=== PATIENT | male | born 1945 ===

== ENCOUNTER 2020-01-11 17:28 | Inpatient (IN) ==
[2020-01-11] MEDS ORDERED: DilTIAZem 50 MG/50 ML IV.SOLN IVC SCH (18:15)
[2020-01-11] MEDS ORDERED: 0.9 % Sodium Chloride 1,000 ML IVC ONE (18:15)
[2020-01-11 18:34] LABS: Calcium 8.9 mg/dL (8.6-10.3); Potassium 3.3 mEq/L (3.5-5.1); Troponin I 0.03 ng/mL (< 0.04)
[2020-01-11 18:46] LABS: Basophils % 0.3 %; Eosinophils % 0.2 %; Hematocrit 45.9 % (37.5-50.1); Hemoglobin 15.7 g/dL (12.9-16.9); Immature Granulocytes % 0.3 % (0-4); Lymphocytes # 0.9 K/mcL (0.6-4.6); Lymphocytes % 15.3 %; Mean Corpuscular HGB Conc 34.2 g/dL (31.6-35.5); Mean Corpuscular Volume 93.7 fL (83.0-100.0); Mean Platelet Volume 10.3 fL (9.4-12.4); Monocytes # 0.6 K/mcL (0.0-1.3); Monocytes % 9.7 %; Neutrophils # 4.4 K/mcL (1.6-8.9); Platelet Count 138 K/mcL (140-400); Red Cell Distribution Width 15.2 % (11.5-14.5); Segmented Neutrophils % 74.2 %; White Blood Count 5.9 K/mcL (4.3-11.1)
[2020-01-11 19:03] LABS: Platelet Estimate Normal (Normal)
[2020-01-11 19:35] LABS: Adenovirus Not Detected (Not Detect); Coronavirus 229E Not Detected (Not Detect); Coronavirus HKU1 Not Detected (Not Detect); Coronavirus NL63 Not Detected (Not Detect); Coronavirus OC43 Not Detected (Not Detect)
[2020-01-11 19:37] LABS: Bordetella Pertussis Not Detected (Not Detect); Chlamydophila pneumoniae Not Detected (Not Detect); Human Metapneumovirus Not Detected (Not Detect); Human Rhinovirus/Enterovirus Not Detected (Not Detect); Influenza A Subtype 2009 H1 Not Detected (Not Detect); Influenza B Not Detected (Not Detect); Mycoplasma pneumoniae Not Detected (Not Detect); Parainfluenza Virus 1 Not Detected (Not Detect); Parainfluenza Virus 2 Not Detected (Not Detect); Parainfluenza Virus 3 Not Detected (Not Detect); Parainfluenza Virus 4 Not Detected (Not Detect); Respiratory Syncytial Virus Not Detected (Not Detect); SARS-CoV-2 DETECTED (Not Detect)
[2020-01-11 19:38] LABS: Prothrombin Time 23.1 Seconds (9.4-12.1)
[2020-01-11] MEDS ORDERED: Furosemide 40 MG/4 ML VIAL IVP ONE (20:55)
[2020-01-11] MEDS ORDERED: Potassium Chloride Elixir 20 MEQ/15 ML UDC PO ONE (20:58)
[2020-01-11] MEDS ORDERED: Naloxone 0.4 MG/ML INJ IVP PRN (21:54)
[2020-01-11] MEDS ORDERED: *HR* Warfarin 5 MG TABLET PO ONE (22:18)
[2020-01-12 06:00] LABS: Immature Granulocytes % 0.2 % (0-4); Mean Corpuscular Volume 92.9 fL (83.0-100.0); Red Cell Distribution Width 15.3 % (11.5-14.5)
[2020-01-12 06:02] LABS: Basophils % 0.5 %; Eosinophils % 0.4 %; Hematocrit 44.6 % (37.5-50.1); Hemoglobin 14.8 g/dL (12.9-16.9); Immature Platelets 5.5 % (1.1-6.1); Lymphocytes # 1.4 K/mcL (0.6-4.6); Lymphocytes % 25.5 %; Mean Corpuscular HGB Conc 33.2 g/dL (31.6-35.5); Mean Corpuscular Hemoglobin 30.8 pg (28.0-33.3); Mean Platelet Volume 10.2 fL (9.4-12.4); Monocytes # 0.5 K/mcL (0.0-1.3); Monocytes % 9.8 %; Neutrophils # 3.5 K/mcL (1.6-8.9); Platelet Count 135 K/mcL (140-400); Segmented Neutrophils % 63.6 %; White Blood Count 5.5 K/mcL (4.3-11.1)
[2020-01-12 06:21] LABS: Albumin 3.8 g/dL (3.5-5.7); Albumin/Globulin Ratio 1.1 (1.1-2.2); Bilirubin,Total 1.1 mg/dL (0.3-1.0); Globulin 3.6 g/dL (2.4-3.5); Magnesium 1.8 mg/dL (1.6-2.6); Phosphorous 2.5 mg/dL (2.7-4.5); Potassium 3.2 mEq/L (3.5-5.1); Total Protein 7.4 g/dL (6.4-8.9); Troponin I 0.03 ng/mL (< 0.04)
[2020-01-12] MEDS: Furosemide 40 MG/4 ML VIAL IVP SCH (07:31)
[2020-01-12 09:33] LABS: C-Reactive Protein 30 mg/L (Less than 10); Lactate Dehydrogenase 280 Units/L (140-271)
[2020-01-12] MEDS: Ipratropium 1 PUFF INHALER IH SCH ×3 (10:50→21:46)
[2020-01-12] MEDS ORDERED: Metoprolol XL (24 HR) Succ 50 MG TAB.ER.24H PO SCH (11:00)
[2020-01-12] MEDS: Metoprolol XL (24 HR) Succ 50 MG TAB.ER.24H PO SCH (11:26)
[2020-01-12 13:17] LABS: ABG Base Excess 3 mEq/L (-2 to 3); ABG HCO3 26 mEq/L (21-27); ABG Oxygen Saturation 97 % (95-98); ABG PCO2 34 mmHg (35-45); ABG PH 7.49 pH Units (7.32-7.45); ABG PO2 80 mmHg (85-104); ABG TCO2 27 mEq/L (20-26)
[2020-01-12 14:25] LABS: INR 2.4; Prothrombin Time 27.7 Seconds (9.4-12.1)
[2020-01-12] MEDS ORDERED: *HR* Warfarin 5 MG TABLET PO ONE (18:00)
[2020-01-12] MEDS ORDERED: Warfarin perPT PO PRN (18:00)
[2020-01-13] MEDS ORDERED: *HR* Metoprolol 5 MG/5 ML VIAL IVP PRN (00:15)
[2020-01-13 01:05] LABS: Hematocrit 43.1 % (37.5-50.1); Hemoglobin 14.6 g/dL (12.9-16.9); Immature Platelets 6.3 % (1.1-6.1); Mean Corpuscular HGB Conc 33.9 g/dL (31.6-35.5); Mean Corpuscular Hemoglobin 31.2 pg (28.0-33.3); Mean Corpuscular Volume 92.1 fL (83.0-100.0); Mean Platelet Volume 10.6 fL (9.4-12.4); Red Blood Count 4.68 M/mcL (4.19-5.50); Red Cell Distribution Width 15.1 % (11.5-14.5); White Blood Count 6.2 K/mcL (4.3-11.1)
[2020-01-13 01:08] LABS: INR 2.9; Prothrombin Time 32.8 Seconds (9.4-12.1)
[2020-01-13 01:24] LABS: BUN/Creatinine Ratio 16 (6-26); Blood Urea Nitrogen 21 mg/dL (8-23); Calcium 8.9 mg/dL (8.6-10.3); Carbon Dioxide 25 mEq/L (23-29); Chloride 102 mEq/L (98-107); Glucose 110 mg/dL (70-105); Magnesium 2.1 mg/dL (1.6-2.6); Osmolality,Calculated 286 (280-300); Phosphorous 2.9 mg/dL (2.7-4.5); Potassium 3.4 mEq/L (3.5-5.1); Sodium 136 mEq/L (136-145); eGFR For African Americans > 60 (> 60); eGFR For Non-African Americans 52 (> 60)
[2020-01-13] MEDS: Ipratropium 1 PUFF INHALER IH SCH ×4 (03:15→21:40)
[2020-01-13] MEDS: Metoprolol XL (24 HR) Succ 50 MG TAB.ER.24H PO SCH (09:26)
[2020-01-13] MEDS: Furosemide 40 MG/4 ML VIAL IVP SCH (09:26)
[2020-01-13] MEDS ORDERED: Colchicine 0.6 MG TABLET PO PRN (12:08)
[2020-01-13] MEDS: Dexamethasone 4 MG/ML VIAL IVP SCH (12:31)
[2020-01-13] MEDS: Levalbuterol 1 PUFF INHALER IH SCH ×2 (15:10→21:40)
[2020-01-13] MEDS ORDERED: *HR* Warfarin 2.5 MG TABLET PO ONE (18:00)
[2020-01-14] MEDS: Ipratropium 1 PUFF INHALER IH SCH ×4 (03:30→21:17)
[2020-01-14] MEDS: Levalbuterol 1 PUFF INHALER IH SCH ×4 (03:30→21:16)
[2020-01-14 05:47] LABS: Hematocrit 46.4 % (37.5-50.1); Hemoglobin 15.4 g/dL (12.9-16.9); Mean Corpuscular HGB Conc 33.2 g/dL (31.6-35.5); Mean Corpuscular Hemoglobin 31.1 pg (28.0-33.3); Mean Corpuscular Volume 93.7 fL (83.0-100.0); Mean Platelet Volume 10.5 fL (9.4-12.4); Platelet Count 166 K/mcL (140-400); Red Blood Count 4.95 M/mcL (4.19-5.50); Red Cell Distribution Width 15.2 % (11.5-14.5); White Blood Count 7.9 K/mcL (4.3-11.1)
[2020-01-14 05:56] LABS: INR 3.8
[2020-01-14 06:15] LABS: Calcium 9.3 mg/dL (8.6-10.3); Magnesium 2.1 mg/dL (1.6-2.6); Phosphorous 2.7 mg/dL (2.7-4.5)
[2020-01-14] MEDS: Dexamethasone 4 MG/ML VIAL IVP SCH (10:09)
[2020-01-14] MEDS: Furosemide 40 MG/4 ML VIAL IVP SCH (10:09)
[2020-01-14] MEDS: lisinopriL 5 MG TABLET PO SCH (10:10)
[2020-01-14] MEDS: Metoprolol XL (24 HR) Succ 50 MG TAB.ER.24H PO SCH (10:10)
[2020-01-14] MEDS ORDERED: *HR* Digoxin 0.5 MG/2 ML AMPUL IVP ONE (11:12)
[2020-01-15] MEDS: Ipratropium 1 PUFF INHALER IH SCH ×4 (03:24→21:25)
[2020-01-15] MEDS: Levalbuterol 1 PUFF INHALER IH SCH ×4 (03:24→21:26)
[2020-01-15 05:49] LABS: Hemoglobin 15.8 g/dL (12.9-16.9); Mean Corpuscular HGB Conc 33.6 g/dL (31.6-35.5); Mean Corpuscular Hemoglobin 31.8 pg (28.0-33.3); Mean Corpuscular Volume 94.6 fL (83.0-100.0); Mean Platelet Volume 10.6 fL (9.4-12.4); Platelet Count 183 K/mcL (140-400); Red Blood Count 4.97 M/mcL (4.19-5.50); Red Cell Distribution Width 15.2 % (11.5-14.5)
[2020-01-15 05:54] LABS: INR 3.8
[2020-01-15 05:57] LABS: Prothrombin Time 43.8 Seconds (9.4-12.1); White Blood Count 12.2 K/mcL (4.3-11.1)
[2020-01-15 06:15] LABS: BUN/Creatinine Ratio 24 (6-26); Blood Urea Nitrogen 30 mg/dL (8-23); Calcium 9.2 mg/dL (8.6-10.3); Carbon Dioxide 25 mEq/L (23-29); Chloride 104 mEq/L (98-107); Glucose 100 mg/dL (70-105); Osmolality,Calculated 290 (280-300); Phosphorous 3.4 mg/dL (2.7-4.5); Potassium 3.9 mEq/L (3.5-5.1); Sodium 137 mEq/L (136-145); eGFR For African Americans > 60 (> 60); eGFR For Non-African Americans 56 (> 60)
[2020-01-15] MEDS: Metoprolol XL (24 HR) Succ 50 MG TAB.ER.24H PO SCH (08:28)
[2020-01-15] MEDS: lisinopriL 5 MG TABLET PO SCH (08:28)
[2020-01-15] MEDS: Dexamethasone 4 MG/ML VIAL IVP SCH (08:29)
[2020-01-15] MEDS: *HR* Digoxin 0.125 MG TABLET PO SCH ×2 (08:29→09:26)
[2020-01-15] MEDS: Furosemide 40 MG/4 ML VIAL IVP SCH (08:29)
[2020-01-15] MEDS ORDERED: *HR* Metoprolol 5 MG/5 ML VIAL IVP PRN (10:16)
[2020-01-16] MEDS: Ipratropium 1 PUFF INHALER IH SCH ×4 (03:36→21:31)
[2020-01-16] MEDS: Levalbuterol 1 PUFF INHALER IH SCH ×4 (03:37→21:31)
[2020-01-16 08:08] LABS: Hemoglobin 16.6 g/dL (12.9-16.9); Mean Corpuscular HGB Conc 34.6 g/dL (31.6-35.5); Mean Corpuscular Hemoglobin 32.8 pg (28.0-33.3); Mean Corpuscular Volume 94.9 fL (83.0-100.0); Mean Platelet Volume 10.8 fL (9.4-12.4); Platelet Count 192 K/mcL (140-400); Red Blood Count 5.06 M/mcL (4.19-5.50); Red Cell Distribution Width 14.9 % (11.5-14.5); White Blood Count 12.3 K/mcL (4.3-11.1)
[2020-01-16 08:28] LABS: BUN/Creatinine Ratio 27 (6-26); Blood Urea Nitrogen 36 mg/dL (8-23); C-Reactive Protein < 5 mg/L (Less than 10); Calcium 9.1 mg/dL (8.6-10.3); Carbon Dioxide 24 mEq/L (23-29); Chloride 102 mEq/L (98-107); Glucose 83 mg/dL (70-105); Lactate Dehydrogenase 239 Units/L (140-271); Osmolality,Calculated 291 (280-300); Potassium 3.5 mEq/L (3.5-5.1); Sodium 137 mEq/L (136-145); eGFR For African Americans > 60 (> 60); eGFR For Non-African Americans 54 (> 60)
[2020-01-16 08:45] LABS: Ferritin 44 ng/mL (20-250)
[2020-01-16] MEDS ORDERED: Furosemide 40 MG TABLET PO SCH (09:00)
[2020-01-16] MEDS ORDERED: *HR* Digoxin 0.125 MG TABLET PO SCH (09:00)
[2020-01-16] MEDS: *HR* Digoxin 0.125 MG TABLET PO SCH (09:32)
[2020-01-16] MEDS: Metoprolol XL (24 HR) Succ 50 MG TAB.ER.24H PO SCH (09:32)
[2020-01-16] MEDS: lisinopriL 5 MG TABLET PO SCH (09:34)
[2020-01-16 11:12] LABS: INR 2.7
[2020-01-16] MEDS ORDERED: NON-FORMULARY MEDICATION 1 EACH EACH (Cholecalciferol (Vitamin D3) [Vitamin D3] 50,000 UNI PO SCH (12:08)
[2020-01-16] MEDS ORDERED: *HR* Warfarin 2.5 MG TABLET PO ONE (18:00)
[2020-01-17] MEDS: Levalbuterol 1 PUFF INHALER IH SCH ×3 (03:34→15:12)
[2020-01-17] MEDS: Ipratropium 1 PUFF INHALER IH SCH ×3 (03:35→15:12)
[2020-01-17 05:29] VITALS: BP 120/84
[2020-01-17 06:25] LABS: Basophils % 0.2 %; Eosinophils # 0.1 K/mcL (0.0-0.6); Eosinophils % 1.5 %; Hematocrit 47.6 % (37.5-50.1); Hemoglobin 16.3 g/dL (12.9-16.9); Immature Granulocytes % 0.4 % (0-4); Lymphocytes # 1.9 K/mcL (0.6-4.6); Mean Corpuscular HGB Conc 34.2 g/dL (31.6-35.5); Mean Corpuscular Hemoglobin 32.2 pg (28.0-33.3); Mean Corpuscular Volume 94.1 fL (83.0-100.0); Mean Platelet Volume 10.9 fL (9.4-12.4); Monocytes # 0.8 K/mcL (0.0-1.3); Neutrophils # 5.7 K/mcL (1.6-8.9); Platelet Count 190 K/mcL (140-400); Red Blood Count 5.06 M/mcL (4.19-5.50); Red Cell Distribution Width 14.7 % (11.5-14.5); Segmented Neutrophils % 66.9 %; White Blood Count 8.6 K/mcL (4.3-11.1)
[2020-01-17 06:26] LABS: INR 2.7; Prothrombin Time 30.7 Seconds (9.4-12.1)
[2020-01-17 06:46] LABS: BUN/Creatinine Ratio 27 (6-26); Blood Urea Nitrogen 37 mg/dL (8-23); Calcium 8.9 mg/dL (8.6-10.3); Carbon Dioxide 23 mEq/L (23-29); Chloride 102 mEq/L (98-107); Glucose 79 mg/dL (70-105); Osmolality,Calculated 290 (280-300); Potassium 3.9 mEq/L (3.5-5.1); Sodium 136 mEq/L (136-145); eGFR For African Americans > 60 (> 60); eGFR For Non-African Americans 51 (> 60)
[2020-01-17] MEDS ORDERED: Metoprolol XL (24 HR) Succ 25 MG TAB.ER.24H PO ONE (09:00)
[2020-01-17] MEDS ORDERED: Furosemide 20 MG TABLET PO SCH (09:00)
[2020-01-17] MEDS: *HR* Digoxin 0.125 MG TABLET PO SCH (09:14)
[2020-01-17] MEDS: Metoprolol XL (24 HR) Succ 50 MG TAB.ER.24H PO SCH (09:14)
[2020-01-17] MEDS ORDERED: *HR* Warfarin 1 MG TABLET PO ONE (18:00)
[2020-01-17] MEDS ORDERED: *HR* Warfarin 3 MG TABLET PO ONE (18:00)
== END 2020-01-17 17:44 | disposition home or self-care (01) | DRG 177 ==
LOC: EMEROOARM 17:28 → 2NENU 17:28 → SUATTDRO 20:44 → 2NENU 21:49 → SUATTDRO 01-12 14:43 → 2NENU 01-16 07:56
PROVIDERS: ADMIT Family Medicine; ATTEND Family Medicine